=== PATIENT | male | born 1985 | race Caucasian/White ===

== ENCOUNTER 2016-08-06 05:46 | Day surgery (SDC) | payer OTHER ==
[2016-08-06] VITALS (9 sets, daily range): BP systolic 124–142; BP diastolic 58–76; PULSE 65–77; RESP 14–20; O2SAT 93–100
[~2016-08-06] VITALS: Ht 177.8 cm; Wt 105.6 kg
[2016-08-06] MEDS: Lactated Ringer's 1,000 ML IV SCH ×2 (05:29→07:15)
[2016-08-06] MEDS ORDERED: fentaNYL-PF 50 mCg/mL 2 mL Inj ONE (05:47)
[2016-08-06] MEDS ORDERED: Ondansetron 2 mg/mL 2 mL Inj ONE (05:47)
[2016-08-06] MEDS ORDERED: EPHEDrine/NS 5 mg/mL 5 mL Syringe ONE (05:47)
[2016-08-06] MEDS ORDERED: MetoCLOpramide 5 mg/mL 2 mL Inj ONE (05:47)
[2016-08-06] MEDS ORDERED: Dexamethasone 4 mg/mL Inj ONE (05:47)
[2016-08-06] MEDS ORDERED: Propofol 10,000 mCg/mL 20 mL Inj ONE (05:47)
[2016-08-06] MEDS ORDERED: CeFAZolin Inj 2 gm / 50mL D5W IV ONE (05:48)
[2016-08-06] MEDS ORDERED: CeFAZolin Inj 2 GM in IV Premix 1 EACH IV ONE (07:00)
[2016-08-06] MEDS ORDERED: Bupivacaine-MPF 0.5% 30 mL Inj NERVEBLOCK ONE (07:30)
[2016-08-06] MEDS ORDERED: Lidocaine 1%-Epi 1:100,000 20 mL Inj NERVEBLOCK ONE (07:30)
[2016-08-06] MEDS ORDERED: Lactated Ringer's 500 ML IV PRN (07:39)
[2016-08-06] MEDS ORDERED: Lactated Ringer's 1,000 ML IV SCH (07:39)
--- NOTE | 2016-08-06 07:39 | PCM.HPANE ---
Patient Data Surgeon Admitting Provider: Attending Provider:Loi Woodward DPM Primary Care Physician:Jeffrey Other Provider:Alejandra Alford Anesthesia Reason for Visit Left Non-Union Navicular Fracture Ht/WT & BMI Height (Feet): 5 Height (Inches): 10.00 Weight (Kilograms): 105.6 Body Mass Index 33.00 Allergies Coded Allergies: No Known Allergies (Unverified , 08/04/16) Past Anesthesia History Anesthesia History: Denies:: Abnormal Airway, Anesthesia Reactions, Difficult Intubation, Fam Anesthesia Reaction, Fam Malignant Hypertherm, Malignant Hyperthermia Diabetes History Hx Diabetes?: No MRSA MRSA: No Medications Home Meds Incl Beta Franci: No No Active Prescriptions or Reported Meds History History of ENT Problems?: No HEENT History: Denies:: Abnormal Airway Cataracts Difficult Intubation Dysphagia Glaucoma Hearing Problem Sinus Problem TMJ Denture Type: None Teeth Condition: Within Normal Limits Hx of Heart Problems?: No Cardiovascular History: Denies:: Heart Murmur Hypertension Hx of Respiratory Problem?: No Respiratory History: Denies:: Use of C-PAP Machine Hx Neurologic Problems?: No Hx of GI Problems?: No Hx of Problems?: No Male Hx: Denies:: Prostate Problems Scrotal Mass Testicular Surgery Skin History: Denies:: History Skin Disorders? 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 (DOI 12/17/15)) Hx of Psycho/Social Problems?: No Hx Surgeries?: Yes (RT SHOULDER RPR) Hx Any Other Health Problems?: Yes Other History: Denies:: Cancer Endocrine Disease Hospitalization Thyroid Disease Hx Diabetes: No Hx Alcohol Use: NoHx Substance Use: Yes (MARIJUANA 1/2 GM/DAY)Have You Smoked inLast 12 mo: YesApprox How Many Cigarettes/day: 1/2 PPD X 10YRS Stop/Bang S-Snoring: Do You Snore Loudly: No T-Tired: feel tired, fatigued: No O-Obsered: Observed not breath: No P-Blood Pressure: treated: No B- Body Mass Index > 35 kg/m2: No A- Age over 50: No N- Neck Large Circumference: Yes G- Gender Male: Yes YOLANDA Total Score: 2 Risk Assessment Category Category 1A: Patient has history of documented sleep apnea, and HAS NOT received any narcotic, sedative or anesthesia administration during this stay. Category 1B: Patient has history of documented sleep apnea, and HAS received any narcotic , sedative or anesthesia administration during this stay Category 2: Patient has SUSPECTED Obstructive Sleep Apnea, and HAS received any narcotic , sedative or anesthesia administration during this stay. Category 3: Patient has SUSPECTED Obstructive Sleep Apnea and HAS NOT received narcotic, sedative or anesthesia administration during this stay. Category 4: Outpatient in Procedural Areas with known sleep apnea or who screen positive for High Risk via the STOP/BANG questionnaire. Exam Exam Vital Signs Vital Signs Date Time Temp Pulse Resp B/P Pulse Ox O2 Delivery O2 Flow Rate FiO2 08/06/16 06:06 36.1 76 16 139/76 100 Room Air General Appearance: Alert, Oriented X3, Cooperative, No Acute Distress HEENT/AIRWAY: MP 2, Neck Movement (FROM), Mouth Opening (3 FBMO) Lungs: Clear to Auscultation, Normal Air Movement Heart: Exam Unremarkable, Regular Rate/Rhythm, No Murmurs/Rubs/Gallops Meds/Labs/Diagnostics Admission Meds Current Medications Lactated Ringer's (Lr) 1,000 ml @ 120 mls/hr [id number] IV Last administered on t 05:29; Start 08/06/16 at 05:00; Stop 08/06/16 at 13:19 Plan Impression Patient chart reviewed, patient interviewed and anesthestic plan with risks, benefits, and alternatives discussed, and informed consent obtained. NPO per Anesth. Guidelines: Yes ASA Physical Status: ASA2 Mod Systemic Disease Anesthetic Plan: GA Bene/Risks/Altern/Consents: Yes HP Complete Prior to Induction: Yes Luis Dougherty MD August 06, 2016 07:17
[2016-08-06] MEDS ORDERED: MetoCLOpramide 5 mg/mL 2 mL Inj IVPUSH PRN (07:40)
[2016-08-06] MEDS ORDERED: Phenylephrine 10,000 mCg/mL Inj IVPUSH PRN (07:40)
[2016-08-06] MEDS ORDERED: EPHEDrine Sulfate 50 mg/mL Inj IVPUSH PRN (07:40)
[2016-08-06] MEDS ORDERED: fentaNYL-PF 50 mCg/mL 2 mL Inj IVPUSH PRN (07:40)
[2016-08-06] MEDS ORDERED: Atropine 0.4 mg/mL Inj IVPUSH PRN (07:40)
[2016-08-06] MEDS ORDERED: Ondansetron 2 mg/mL 2 mL Inj IVPUSH PRN (07:40)
[2016-08-06] MEDS ORDERED: Labetalol 5 mg/mL 4 mL Inj IV PRN (07:40)
[2016-08-06] MEDS ORDERED: HYDROmorphone 1 mg/mL Inj IVPUSH PRN (07:40)
[2016-08-06] MEDS ORDERED: oxyCODONE-Acetamin 5-325 mg Tablet PO PRN (09:00)
--- NOTE | 2016-08-06 09:04 | PCM.PODPO ---
Podiatry Operative Report Date of Service: August 06, 2016 Date of Service August 06, 2016 Pre Operative Diagnosis Nonunion left navicular fracture Post Operative Diagnosis Same as preoperative diagnoses Procedure Open repair of nonunion of left navicular fracture Surgeon Surgeon: Loi Woodward DPM Assistants: None Indication for Procedure Nonunion left navicular fracture Findings Partially united left navicular fracture which is stable at the articular surface with stable medial and lateral bony attachments, bone void distal to the fracture site with partially united cancellous bone Details of Procedure Patient was identified in the preoperative holding area. All preoperative comorbidities and allergies were identified and thoroughly discussed. The patient was transported into the operating room and placed on the operating room table in the normal supine position. A preoperative block consisting of 10 mL of half percent Marcaine plain and 2% lidocaine with epinephrine were given to the left medial ankle and navicular. The patient was then prepped and draped in the normal aseptic technique. General anesthesia was induced by the anesthesia service. A dorsomedial incision was made directly over the talonavicular joint utilizing a #15 blade approximately 3-1/2 cm in length. Once that initially her skin subcutaneous neurovascular structures including the medial saphenous vein and nerve were identified and retracted out of the surgical field. Blunt dissection was carried down through subcutaneous tissue to identify the retinacular layer. The extensor retinaculum was incised utilizing a Metzenbaum scissor and reflected both medially and laterally. The tibialis anterior tendon was identified and retracted laterally out of the surgical field. The capsular layer directly overlying the talonavicular joint was identified and a fresh #15 blade was utilized to make an incision through the capsular layer which was then reflected dorsally. Blunt dissection was carried across the dorsum of the talonavicular joint utilizing a reyes periosteal elevator. Inspection of the talonavicular joint revealed an intact fracture fragment with minimal damage to the navicular articular surface. A [place] periosteal elevator was utilized to probe distal to the fracture fragment and poor bone quality was noted. A large amount of bone was curetted from this area directly distal to the fracture fragment site. The fracture fragment itself as related to the articular surface of the navicular was found to be within normal anatomical position and alignment without notable step-off. A rongeur was utilized to contour a small portion of the dorsum of the navicular surrounding the distal aspect of the fracture site. A 1.8 mm drill bit was then utilized to drill through cancellous bone within the area of the bone void to ensure healthy bleeding bone at the surface of the fracture site. Approximately 1/2 mL of demineralized bone matrix was then inserted into the bone void distal to the articular surface of the fracture fragment and press- fit into place. Inspection of the fracture fragment revealed no ideal area first internal screw fixation however the fracture fragment is well adhered at the articular surface both medially and laterally without any notable movement thus internal fixation is likely not necessary. The wound was flushed with copious amounts of normal saline. Closure was performed in layered fashion with 3. 0 Vicryl suture to the capsular layer retinaculum and subcutaneous tissue. Skin was closed utilizing number 3. 0 Prolene. The patient was then placed into a dressing consisting of Adaptic sterile 4 x 4 gauze Kerlix and a lightly compressive Melendrez compression dressing. No complications occurred during this procedure. The patient was awoken by anesthesia extubated and transferred out of the operating room. Grafts, Implants: Grafts-See Implant Record Complications There were no periprocedural complications identified. Condition Stable Anesthetic Administered: GA Catheters: None Output, Estimated Blood Loss: 30 Blood Admin during surgery: No Surgical Cast or Splint: Well-padded Short Leg Splint Surgical Specimen Removed: No Specimen sent to Pathology: No Post Operative Plan Ice and elevate left foot Strict nonweightbearing left foot Contact office with any questions or concerns regarding procedure Discharged to home when stable Keep dressing clean dry and intact Follow-up in 1 week Loi Woodward DPM August 06, 2016 09:04
--- NOTE | 2016-08-06 13:32 | PCM.ANEP1 ---
Post Anesthesia Phase 1 PACU Phase 1 Assessment Date of Service: August 06, 2016 Vital Signs Vital Signs Date Time Temp Pulse Resp B/P Pulse Ox O2 Delivery O2 Flow Rate FiO2 08/06/16 10:20 68 18 129/58 97 Room Air 08/06/16 09:29 36.4 65 18 134/67 97 Room Air 08/06/16 09:24 68 17 140/72 93 Room Air 08/06/16 09:15 36.5 68 14 142/73 96 Room Air 08/06/16 09:10 73 20 142/69 94 Room Air 08/06/16 09:05 68 17 138/72 96 Room Air 08/06/16 09:00 77 15 124/65 96 Room Air 08/06/16 08:55 36.5 75 19 129/73 98 Room Air 08/06/16 06:06 36.1 76 16 139/76 100 Room Air Anesthetic Administered: GA Level of Alertness: Awake, talking COATS's with Equal Strength: Yes Pain: No Nausea or Vomiting: No Cardiovascular Function and Hy: No Oxygen Delivery: Room Air Lungs: Clear to Auscultation, Normal Air Movement Dermatome Level: Full Sensation Complications: No Follow up Care: No Luis Dougherty MD August 06, 2016 13:32
== END 2016-08-06 23:59 | disposition home or self-care (01) ==
LOC: SAS 05:46
PROVIDERS: ATTEND Podiatrist Foot & Ankle Surgery
DX: S92.255 Nondisplaced fracture of navicular [scaphoid] of left foot (principal); W22.8XXD Striking against or struck by other objects, subsequent encounter; F17.210 Nicotine dependence, cigarettes, uncomplicated; F12.90 Cannabis use, unspecified, uncomplicated
CPT/HCPCS: 28320; C1713; J0690; J1100; J1885; J2405; J2765; J3010; J7120